=== PATIENT | female | born 2000 | race African-American/Black ===

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

== ENCOUNTER 2022-02-12 09:01 | Emergency (ER) | payer MEDICAID, OTHER ==
[~2022-02-12] VITALS: Ht 165.1 cm; Wt 56.8 kg
[2022-02-12 10:30] VITALS: BP 118/63
[2022-02-12] MEDS ORDERED: BACIOIN49 OP (11:43)
[2022-02-12] MEDS ORDERED: IBUP600T27 PO (11:43)
== END 2022-02-12 11:48 | disposition home or self-care (01) ==
LOC: ER 09:01
DX: H00.11 Chalazion right upper eyelid (principal)

== ENCOUNTER 2022-05-11 19:22 | Emergency (ER) | payer MEDICAID ==
[~2022-05-11] VITALS: Ht 165.1 cm; Wt 63.6 kg
[~2022-05-11 19:22] MED LIST: BACIOIN49 OP; IBUP600T27 PO
[2022-05-11 19:47] VITALS: BP 106/70
[2022-05-11] MEDS ORDERED: NEOM0.1O7 OP (20:46)
== END 2022-05-11 20:51 | disposition home or self-care (01) ==
LOC: ER 19:23
DX: H00.11 Chalazion right upper eyelid (principal)

== ENCOUNTER 2022-05-28 19:57 | Emergency (ER) | payer MEDICAID ==
[~2022-05-28] VITALS: Ht 165.1 cm; Wt 63.6 kg
[~2022-05-28 19:57] MED LIST changes: +NEOM0.1O7 OP
[2022-05-28 21:28] LABS: Basophils # (auto) 0 10 ^3/uL (0-0.2); Eosinophils # (auto) 0.1 10 ^3/uL (0-0.8); Hemoglobin 11.4 g/dL (12.2-16.2); Lymphocytes # (auto) 2.1 10 ^3/uL (0.4-5.4)
[2022-05-28 21:30] LABS: Basophils % (auto) 0.3 % (0.0-2.0); Eosinophils % (auto) 1.3 % (0.0-7.0); Hematocrit 34.2 % (36.0-46.0); Lymphocytes % (auto) 21.5 % (10.0-50.0); Mean Corpuscular Hemoglobin 26.4 pg (28.0-32.0); Mean Corpuscular Hgb Conc. 33.5 g/dL (32.0-36.0); Mean Corpuscular Volume 78.8 fL (80.0-100.0); Monocytes # (auto) 0.6 10 ^3/uL (0-1.3); Monocytes % (auto) 5.6 % (0.0-12.0); Neutrophils # (auto) 7.1 10 ^3/uL (1.6-8.6); Neutrophils % (auto) 71.3 % (37.0-80.0); Red Blood Cells 4.33 10^6/uL (4.0-5.20); Red Cell Distribution Width 13.1 % (11.8-14.3)
[2022-05-28 22:21] LABS: Urine Bacteria FEW /hpf (None Seen); Urine Blood Negative /uL (Negative); Urine Mucus FEW (None Seen); Urine Specific Gravity 1.036 (1.001-1.035); Urine WBC 1 /hpf (0 - 5)
[2022-05-28 22:28] LABS: Albumin 3.7 g/dL (3.4-5.0); BUN/Creatinine Ratio 17.6; Calcium 9.3 mg/dL (8.5-10.1)
[2022-05-28 22:31] LABS: Bilirubin, Total 0.2 mg/dL (0.2-1.0); Total Protein 7.3 g/dL (6.4-8.2)
[2022-05-29 01:18] VITALS: BP 125/69
== END 2022-05-29 01:18 | disposition home or self-care (01) ==
LOC: ER 19:57
DX: O20.8 Other hemorrhage in early pregnancy (principal); O26.891 Other specified pregnancy related conditions, first trimester; N94.6 Dysmenorrhea, unspecified; R10.2 Pelvic and perineal pain; Z3A.01 Less than 8 weeks gestation of pregnancy
CPT/HCPCS: 36415; 76801; 76817; 80053; 81001; 84702; 85025; 86850; 86900; 86901

== ENCOUNTER 2022-06-02 07:29 | Emergency (ER) | payer MEDICAID ==
[~2022-06-02] VITALS: Ht 165.1 cm; Wt 62.6 kg
[2022-06-02 07:46] VITALS: BP 119/68
[2022-06-02 08:01] LABS: Basophils # (auto) 0 10 ^3/uL (0-0.2); Eosinophils # (auto) 0.1 10 ^3/uL (0-0.8); Monocytes # (auto) 0.4 10 ^3/uL (0-1.3); Neutrophils # (auto) 4.2 10 ^3/uL (1.6-8.6); Nucleated Red Blood Cells % 0.1 %
[2022-06-02 08:03] LABS: Basophils % (auto) 0.5 % (0.0-2.0); Eosinophils % (auto) 1.9 % (0.0-7.0); Hematocrit 35.2 % (36.0-46.0); Lymphocytes # (auto) 1.6 10 ^3/uL (0.4-5.4); Lymphocytes % (auto) 25.3 % (10.0-50.0); Mean Corpuscular Hemoglobin 26.5 pg (28.0-32.0); Mean Corpuscular Volume 78.2 fL (80.0-100.0); Monocytes % (auto) 6.8 % (0.0-12.0); Neutrophils % (auto) 65.5 % (37.0-80.0); Red Blood Cells 4.51 10^6/uL (4.0-5.20); White Blood Cell 6.4 10^3/uL (4.4-10.8)
[2022-06-02 08:19] LABS: Calcium 8.7 mg/dL (8.5-10.1); Potassium 3.7 mmol/L (3.5-5.1)
[2022-06-02 08:24] LABS: Albumin 3.8 g/dL (3.4-5.0); BUN/Creatinine Ratio 14.3; Bilirubin, Total 0.3 mg/dL (0.2-1.0)
== END 2022-06-02 14:19 | disposition left against medical advice (07) ==
LOC: ER 07:29
DX: O26.851 Spotting complicating pregnancy, first trimester (principal); O26.891 Other specified pregnancy related conditions, first trimester; R10.2 Pelvic and perineal pain; Z3A.01 Less than 8 weeks gestation of pregnancy
CPT/HCPCS: 36415; 76801; 76817; 80053; 84702; 85025

== ENCOUNTER 2022-11-21 09:23 | Emergency (ER) | payer MEDICAID ==
[~2022-11-21] VITALS: Ht 167.6 cm; Wt 54.3 kg
[~2022-11-21 09:23] MED LIST changes: +IBUP-1454 PO; -IBUP600T27 PO
[2022-11-21 09:44] VITALS: BP 131/86; PULSE 91; RESP 16; TEMP 98; O2SAT 99
[2022-11-21 10:11] LABS: Basophils # (auto) 0 10 ^3/uL (0-0.2); Basophils % (auto) 0.7 % (0.0-2.0); Eosinophils # (auto) 0 10 ^3/uL (0-0.8); Eosinophils % (auto) 0.4 % (0.0-7.0); Hematocrit 34.8 % (36.0-46.0); Hemoglobin 11.3 g/dL (12.2-16.2); Lymphocytes # (auto) 1.5 10 ^3/uL (0.4-5.4); Lymphocytes % (auto) 25.8 % (10.0-50.0); Mean Corpuscular Hemoglobin 25.6 pg (28.0-32.0); Mean Corpuscular Hgb Conc. 32.5 g/dL (32.0-36.0); Mean Corpuscular Volume 78.6 fL (80.0-100.0); Monocytes # (auto) 0.5 10 ^3/uL (0-1.3); Monocytes % (auto) 8.8 % (0.0-12.0); Neutrophils # (auto) 3.7 10 ^3/uL (1.6-8.6); Neutrophils % (auto) 64.3 % (37.0-80.0); Nucleated Red Blood Cells % 0.1 %; Red Blood Cells 4.43 10^6/uL (4.0-5.20); Red Cell Distribution Width 13.3 % (11.8-14.3); White Blood Cell 5.8 10^3/uL (4.4-10.8)
[2022-11-21 10:35] LABS: BUN/Creatinine Ratio 18.9 (10.0-20.0); Potassium 3.6 mmol/L (3.5-5.1)
[2022-11-21 11:04] LABS: Urine Bacteria FEW /hpf (None Seen); Urine Blood Negative /uL (Negative); Urine Clarity HAZY (Clear); Urine Color Yellow (Yellow); Urine Mucus FEW (None Seen); Urine Protein, UAD 1+ (Negative); Urine Specific Gravity 1.032 (1.001-1.035); Urine WBC 6 /hpf (0 - 5)
[2022-11-21] MEDS ORDERED: ZOFR4T PO (11:22)
== END 2022-11-21 11:23 | disposition home or self-care (01) ==
LOC: ER 09:23
DX: O26.891 Other specified pregnancy related conditions, first trimester (principal); R11.0 Nausea; R10.2 Pelvic and perineal pain; Z3A.01 Less than 8 weeks gestation of pregnancy; Z79.899 Other long term (current) drug therapy
CPT/HCPCS: 36415; 80048; 81001; 81025; 84702; 85025

== ENCOUNTER 2022-12-26 08:46 | Emergency (ER) | payer MEDICAID ==
[~2022-12-26] VITALS: Ht 165.1 cm; Wt 52.2 kg
[~2022-12-26 08:46] MED LIST changes: +ZOFR4T PO
[2022-12-26 09:25] LABS: Urine Bacteria FEW /hpf (None Seen); Urine Blood Negative /uL (Negative); Urine Clarity HAZY (Clear); Urine Color Yellow (Yellow); Urine Mucus FEW (None Seen); Urine Protein, UAD 1+ (Negative); Urine Specific Gravity 1.029 (1.001-1.035); Urine Urobilinogen Normal (Negative); Urine WBC 12 /hpf (0 - 5)
[2022-12-26] MEDS ORDERED: NITR-87 PO (10:59)
[2022-12-26 11:17] VITALS: BP 114/60; PULSE 99; RESP 18; TEMP 97.8; O2SAT 98
== END 2022-12-26 11:15 | disposition home or self-care (01) ==
LOC: ER 08:46
DX: O23.41 Unspecified infection of urinary tract in pregnancy, first trimester (principal); O26.891 Other specified pregnancy related conditions, first trimester; R55 Syncope and collapse; R56.9 Unspecified convulsions; N39.0 Urinary tract infection, site not specified; Z3A.11 11 weeks gestation of pregnancy
CPT/HCPCS: 76801; 81001; 81025; 93005

== ENCOUNTER 2024-12-13 19:03 | Observation (INO) | payer MEDICAID ==
[~2024-12-13 19:03] MED LIST changes: +NITR-87 PO; +PREN-129 OR
--- NOTE | 2024-12-13 20:09 | DVH ---
OB ULTRASOUND, LIMITED CLINICAL INDICATION: SEIZURES TECHNIQUE: Multiple grayscale ultrasound and M-mode images were obtained of the pelvis for evaluation of intrauterine . COMPARISON: US OB >14 WKS on DOS: 08/20/24, US BIOPHYSICAL PROFILE on DOS: 07/16/23, US BIOPHYSICAL PROF ILE on DOS: 07/13/23 FINDINGS: A single living fetus is seen in cephalic presentation. Biophysical profile: 11/18 breathin movements: 2 tone: 2 Amniotic fluid: 2 Placenta: Fundal. Amniotic fluid: Visibly normal. JAKY 12.3 cm. heart rate: 145 beats/min. A complete anatomic survey was not performed on this exam. IMPRESSION: 1. Biophysical profile: 11/18
--- NOTE | 2024-12-13 20:39 | DVHDS2 ---
Physician Discharge Progress N Final Diagnosis: testing for hx of seizures (last one in 2022, has not been on meds since 2020) Operations or Procedures: Operations or Procedures 24yo IUP@33.2wks VSS NST reactive FKC/PTL precautions reviewed Recommended pt go see a neurologist for seizure hx mgmt. Dr. Marcano consulted, agrees with POC. Other Interventions Other Interventions [place] [address] Ph: [phone] DIAGNOSTIC IMAGING Diagnostic Imaging Report : [id number] Signed PATIENT: YULISA HEIN ACCT: [id number] UNIT: [id number] : 2000 LOC: [facility] / BED: TRIAGE2 / A AGE / SEX: 24 / F ADM STATUS: ADM IN SERVICE 15 ORDERING PHYSICIAN: REINALDO HAUSER CNM PROCEDURE(s): BPP - BIOPHYSICAL PROFILE REASON: SEIZURES ORDER NUMBER(s): [id number], ACCESSION NUMBER(s): [id number] OB ULTRASOUND, LIMITED CLINICAL INDICATION: SEIZURES TECHNIQUE: Multiple grayscale ultrasound and M-mode images were obtained of the pelvis for evaluation of intrauterine . COMPARISON: US OB >14 WKS on DOS: 08/20/24, US BIOPHYSICAL PROFILE on DOS: 07/16/23, US BIOPHYSICAL PROFILE on DOS: 07/13/23 FINDINGS: A single living fetus is seen in cephalic presentation. Biophysical profile: 11/18 breathin movements: 2 tone: 2 Amniotic fluid: 2 Placenta: Fundal. Amniotic fluid: Visibly normal. JAKY 12.3 cm. heart rate: 145 beats/min. A complete anatomic survey was not performed on this exam. IMPRESSION: 1. Biophysical profile: 11/18 ATED BY: CHOCO JOSÉ MD DICTATED DATE/TIME: 12/13/242005 SIGNED BY: CHOCO JOSÉ MD SIGNED DATE/TIME: 12/13/242005 CC: Condition on Discharge: Stable Disposition: Home Discharge Instructions: Diet: Regular Activity: No Restrictions, As Tolerated Medications: see med list Follow Up Care: Specialist: f/u in 1 wk Discharge Statement: "Patient was advised to return to the ER or call 911 if any headaches, dizziness, shortness of breath, chest pain, abdominal pain, bleeding, fevers, or worsening of medical condition. Patient was counseled about treatment plan, medications, possible side effects, patientverbalized understanding. All questions were answered to the best of my ability. This discharge took greater then 30 minutes in planning, reviewing documentation, counseling the patient, and discussing with other team members." Visit Coding OBGYN Date of Service: Dec 13, 2024 Billing Provider: REINALDO HAUSER CNM ASSISTANT COUNSEL Common Visit Codes: [id number] OBS CARE (HIGH) ASSISTANT COUNSEL Procedure Codes: 49598-59- NON-STRESS TEST REINALDO HAUSER CNM Dec 13, 2024 20:39
== END 2024-12-13 21:35 | disposition home or self-care (01) ==
LOC: LDRP 19:03
PROVIDERS: ADMIT Obstetrics & Gynecology; ATTEND Obstetrics & Gynecology
DX: Z36.89 Encounter for other specified antenatal screening (principal); Z3A.33 33 weeks gestation of pregnancy; Z98.890 Other specified postprocedural states
CPT/HCPCS: 59025; 76819; 81002; 94760; G0378

== ENCOUNTER 2024-12-19 06:35 | Observation (INO) | payer MEDICAID ==
--- NOTE | 2024-12-19 20:42 | DVH ---
BIOPHYSICAL PROFILE HISTORY: Hx of seizures Comparison Study: US BIOPHYSICAL PROFILE on DOS: 12/13/24, US OB >14 WKS on DOS: 08/20/24, US BIOPHYSICA L PROFILE on DOS: 07/16/23, US BIOPHYSICAL PROFILE on DOS: 07/13/23, US BIOPHYSICAL PROFILE on DOS: TECHNIQUE: Multiple real-time grayscale sonographic images through the gravid uterus of the fetus wi th duplex Doppler color flow and M-mode spectral analysis FINDINGS: BIOPHYSICAL PROFILE: breathing score: 2 movement score: 2 tone score: 2 Quantitative JAKY score: 2 (JAKY: 16.7 Cm.) Total score: 8 The cervix is not visualized Single live fetus in breech presentation. heart rate 147 beats per minute. Fundal placenta without previa or abruption IMPRESSION: Biophysical profile score: 8
[2024-12-20 03:38] LABS: Cannabinoid Screen, Urine Pos (NEGATIVE)
[2024-12-20 03:41] LABS: Amphetamine Screen, Urine Neg (NEGATIVE); Barbiturate Scree,Urine Neg (NEGATIVE); Benzodiazephine Screen, Urine Neg (NEGATIVE); Cocaine Screen, Urine Neg (NEGATIVE); Opiate Scree,Urine Neg (NEGATIVE); Phencyclidine Screen, Urine Neg (NEGATIVE)
--- NOTE | 2024-12-20 06:11 | DVHDS2 ---
Discharge Summary Date of Admission Dec 19, 2024 at 19:04 Date of Discharge: Dec 19, 2024 Admitting Diagnosis Thirty-four weeks history of seizure disorder here for NST BPP both performed in reassuring Labs/Diagnostic Data: Laboratory Results Test 12/19/24 21:00 Urine Opiates Screen Neg (NEGATIVE) Urine Fentanyl Screen Neg (NEGATIVE) Urine Barbiturates Screen Neg (NEGATIVE) Urine Phencyclidine Screen Neg (NEGATIVE) Urine Amphetamines Screen Neg (NEGATIVE) Urine Benzodiazepines Screen Neg (NEGATIVE) Urine Cocaine Screen Neg (NEGATIVE) Urine Cannabinoids Screen Pos (NEGATIVE) Brief Hx & Hospital Course: NST BPP performed reassuring Consults/Reason for consult None Operations or Procedures None Condition at Discharge: Good Final Diagnosis/Problems List 34 weeks seizures disorder history reassuring NST BPP Discharge Disposition: Home Discharge Instruct/Medications Diet: Regular Activity: Light activity (Kick counts labor precautions) Scheduled Bacitracin-Polymyxin B (Ophth) (Bacitracin/Polymyxin B), 1 BASE OP TID Nitrofurantoin Monohydrate Mac (Macrobid), 100 MG PO BID Ondansetron Odt 4MG Tab (Zofran Po), 4 MG PO BID Scheduled PRN Ibuprofen (Ibuprofen), 1 TAB PO TID PRN Wqofssyt-Aknlmb-Yqmxzgkc (Maxitrol), 0.1 % OP TID PRN Miscellaneous Medications Vit W/ Ferrous Fumara (), 1 OR, (Reported) Discharge Statement: "Patient was advised to return to the ER or call 911 if any headaches, dizziness, shortness of breath, chest pain, abdominal pain, bleeding, fevers, or worsening of medical condition. Patient was counseled about treatment plan, medications, possible side effects, patientverbalized understanding. All questions were answered to the best of my ability. This discharge took greater then 30 minutes in planning, reviewing documentation, counseling the patient, and discussing with other team members." ASSESSMENT ASSESSMENT Assessment Visit Coding OBGYN Date of Service: Dec 19, 2024 Billing Provider: ENDY DUNN DO DIRECTOR OF PROVIDER RELATIONS Common Visit Codes: 36761-UEK/OBS SAME DATE (LOW), 18941-LXN/OBS SAME DATE (MOD), 10198-KZS/OBS SAME DATE (HIGH) DIRECTOR OF PROVIDER RELATIONS Procedure Codes: 49792-65- NON-STRESS TEST ENDY DUNN DO Dec 20, 2024 06:11
== END 2024-12-19 21:12 | disposition home or self-care (01) ==
LOC: LDRP 19:04
PROVIDERS: ADMIT Obstetrics & Gynecology; ATTEND Obstetrics & Gynecology
DX: O26.893 Other specified pregnancy related conditions, third trimester (principal); G40.909 Epilepsy, unspecified, not intractable, without status epilepticus; Z3A.34 34 weeks gestation of pregnancy; Z98.890 Other specified postprocedural states
CPT/HCPCS: 59025; 76819; 80307; 81002; 94760; G0378

== ENCOUNTER 2024-12-26 13:12 | Observation (INO) | payer MEDICAID ==
[2024-12-26] MEDS ORDERED: AMMONIA 0.33 ML INHALANT IN ONE (20:44)
[2024-12-26] MEDS ORDERED: FERR325T24 PO (21:11)
--- NOTE | 2024-12-26 21:12 | DVH ---
LIMITED OB ULTRASOUND > 14 WKS: HISTORY: Seizures TECHNIQUE: Transabdominal sonographic images of maternal and structures. COMPARISON: US BIOPHYSICAL PROFILE on DOS: 12/19/24, US BIOPHYSICAL PROFILE on DOS: 12/13/24, US BIOPHYSI BEATRICE PROFILE on DOS: 07/16/23, US BIOPHYSICAL PROFILE on DOS: 07/13/23, US BIOPHYSICAL PROFILE on DOS: 06/12 09/03 FINDINGS: Intrauterine gestation with heart rate of 147 beats per minute. Cephalic presentation. Posteri or placenta without obvious previa. The cervix is obscured. JAKY measures 14.7 cm. Biophysical profile: breathin/2 movements: 2/2 tone: 2/2 Amniotic Fluid: 2/2 IMPRESSION: 1. Biophysical profile score of 6/8, with no visualized breathing. Obstetric consultation recom mended. 2. Normal cardiac activity. Cephalic presentation. No evidence of previa.
[2024-12-26 21:25] LABS: Hemoglobin 8.4 g/dL (12.2-16.2)
[2024-12-26 21:27] LABS: Hematocrit 25.6 % (36.0-46.0); Mean Corpuscular Hemoglobin 24.2 pg (28.0-32.0); Mean Corpuscular Volume 73.9 fL (80.0-100.0); Nucleated Red Blood Cells % 0.0 %
[2024-12-26 21:36] LABS: Alanine Aminotransferase 11 U/L (7-40); Anion Gap 9 (5-15); BUN/Creatinine Ratio 10.9 (10.0-20.0); Carbon Dioxide 26 mmol/L (20-31); Chloride 102 mmol/L (98-107); Glucose 82 mg/dL (74-106); Potassium 4.1 mmol/L (3.5-5.1); Sodium 137 mmol/L (136-145); Total Protein 6.0 g/dL (5.7-8.2)
[2024-12-26 21:37] LABS: Albumin 3.6 g/dL (3.2-4.8)
[2024-12-26 21:39] LABS: Protein, Urine 28.6 mg/dL (1-14)
[2024-12-26 21:41] LABS: Alkaline Phosphatase 120 U/L (46-116); Bilirubin, Total 0.2 mg/dL (0.2-1.0); Blood Urea Nitrogen 6 mg/dL (9-23); Calcium 8.5 mg/dL (8.7-10.4)
[2024-12-26 21:44] LABS: INR 0.9 (0.9-1.15); Partial Thromboplastin Time 25.8 SEC (24.5-34.5); Prothrombin Time 9.6 sec (9.3-11.8)
[2024-12-26 21:49] LABS: Urine Protein, UAD TRACE (Negative)
[2024-12-26 21:56] LABS: Uric Acid 3.5 mg/dL (3.1-7.8)
--- NOTE | 2024-12-27 06:16 | DVHDS2 ---
Discharge Summary Date of Admission Dec 26, 2024 at 19:05 Date of Discharge: Dec 26, 2024 Admitting Diagnosis Thirty-five week history of seizure disorder here for BPP NST both reassuring and both performed Wounds: None Labs/Diagnostic Data: Laboratory Results Test 12/26/24 20:58 12/26/24 20:31 White Blood Count 10.4 10^3/uL (4.4-10.8) Red Blood Count 3.47 10^6/uL (4.0-5.20) Hemoglobin 8.4 g/dL (12.2-16.2) Hematocrit 25.6 % (36.0-46.0) Mean Corpuscular Volume 73.9 fL (80.0-100.0) Mean Corpuscular Hemoglobin 24.2 pg (28.0-32.0) Mean Corpuscular Hemoglobin Concent 32.8 g/dL (32.0-36.0) Red Cell Distribution Width 15.5 % (11.8-14.3) Platelet Count 299 10^3/uL (140-450) Mean Platelet Volume 7.2 fL (6.9-10.8) Neutrophils (%) (Auto) 69.0 % (37.0-80.0) Lymphocytes (%) (Auto) 21.3 % (10.0-50.0) Monocytes (%) (Auto) 8.4 % (0.0-12.0) Eosinophils (%) (Auto) 0.9 % (0.0-7.0) Basophils (%) (Auto) 0.4 % (0.0-2.0) Neutrophils # (Auto) 7.2 10 ^3/uL (1.6-8.6) Lymphocytes # (Auto) 2.2 10 ^3/uL (0.4-5.4) Monocytes # (Auto) 0.9 10 ^3/uL (0-1.3) Eosinophils # (Auto) 0.1 10 ^3/uL (0-0.8) Basophils # (Auto) 0 10 ^3/uL (0-0.2) Nucleated Red Blood Cells 0.0 % Prothrombin Time 9.6 sec (9.3-11.8) Prothrombin Time INR 0.90 (0.9-1.15) Activated Partial Thromboplast Time 25.8 SEC (24.5-34.5) Sodium Level 137 mmol/L (136-145) Potassium Level 4.1 mmol/L (3.5-5.1) Chloride Level 102 mmol/L (98-107) Carbon Dioxide Level 26 mmol/L (20-31) Anion Gap 9 (5-15) Blood Urea Nitrogen 6 mg/dL (9-23) Creatinine 0.55 mg/dL (0.550-1.02) Glomerular Filtration Rate Calc 133 mL/min (>90) BUN/Creatinine Ratio 10.9 (10.0-20.0) Serum Glucose 82 mg/dL (74-106) Uric Acid 3.5 mg/dL (3.1-7.8) Calcium Level 8.5 mg/dL (8.7-10.4) Total Bilirubin 0.2 mg/dL (0.2-1.0) Aspartate Amino Transferase (AST) 16 U/L (13-40) Alanine Aminotransferase (ALT) 11 U/L (7-40) Alkaline Phosphatase 120 U/L (46-116) Total Protein 6.0 g/dL (5.7-8.2) Albumin 3.6 g/dL (3.2-4.8) Urine Color Yellow (Yellow) Urine Clarity Turbid (Clear) Urine pH 6.0 (5.0-9.0) Urine Specific [place] 1.024 (1.001-1.035) Urine Protein Trace (Negative) Urine Ketones Negative (Negative) Urine Blood Negative /uL (Negative) Urine Nitrite Negative (Negative) Urine Bilirubin Negative (Negative) Urine Urobilinogen Normal mg/dL (Negative) Urine Leukocyte Esterase 2+ /uL (Negative) Urine RBC 1 /hpf (0 - 4) Urine Microscopic WBC 6 /HPF (0-5) Urine Squamous Epithelial Cells Few /hpf (<5) Urine Bacteria Few /hpf (None Seen) Urine Mucus Few (None Seen) Urine Creatinine 205.66 mg/dL (30.0-125.0) Urine Protein/Creatinine Ratio 0.14 Urine Glucose Normal mg/dL (Normal) Urine Total Protein 28.6 mg/dL (1-14) Other Laboratory Tests 12/26/24 20:58 Brief Hx & Hospital Course: BPP NST reassuring performed Operations or Procedures NST BPP Condition at Discharge: Good Final Diagnosis/Problems List Hx of seizures Discharge Disposition: Home Discharge Instruct/Medications Diet: Regular Activity: No Restrictions, As Tolerated (Kick counts labor precautions) Follow Up/Referral: Return to birthplace 12/27/24 at 2pm Medications: Continue taking PNV and Iron Scheduled Bacitracin-Polymyxin B (Ophth) (Bacitracin/Polymyxin B), 1 BASE OP TID Ferrous Sulfate (Ferrous Sulfate), 325 MG PO DAILY, (Reported) Nitrofurantoin Monohydrate Mac (Macrobid), 100 MG PO BID Ondansetron Odt 4MG Tab (Zofran Po), 4 MG PO BID Scheduled PRN Ibuprofen (Ibuprofen), 1 TAB PO TID PRN Iyqncxku-Kiokks-Oedewyrl (Maxitrol), 0.1 % OP TID PRN Miscellaneous Medications Vit W/ Ferrous Fumara (), 1 OR, (Reported) Discharge Statement: "Patient was advised to return to the ER or call 911 if any headaches, dizziness, shortness of breath, chest pain, abdominal pain, bleeding, fevers, or worsening of medical condition. Patient was counseled about treatment plan, medications, possible side effects, patientverbalized understanding. All questions were answered to the best of my ability. This discharge took greater then 30 minutes in planning, reviewing documentation, counseling the patient, and discussing with other team members." ASSESSMENT ASSESSMENT Assessment Hx of seizures Visit Coding OBGYN Date of Service: Dec 27, 2024 Billing Provider: ENDY DUNN DO PROBATION SUPERVISOR Common Visit Codes: 04544-RYR/OBS SAME DATE (LOW), 46283-YMG/OBS SAME DATE (MOD), 74480-SDE/OBS SAME DATE (HIGH) PROBATION SUPERVISOR Procedure Codes: 92601-59- NON-STRESS TEST ENDY DUNN DO Dec 27, 2024 06:16
== END 2024-12-26 22:31 | disposition home or self-care (01) ==
LOC: LDRP 19:05
PROVIDERS: ADMIT Obstetrics & Gynecology; ATTEND Obstetrics & Gynecology
DX: O26.893 Other specified pregnancy related conditions, third trimester (principal); G40.909 Epilepsy, unspecified, not intractable, without status epilepticus; Z3A.35 35 weeks gestation of pregnancy; Z98.890 Other specified postprocedural states; Z86.2 Personal history of diseases of the blood and blood-forming organs and certain disorders involving the immune mechanism
CPT/HCPCS: 36415; 59025; 76819; 80053; 81001; 81002; 82570; 84156; 84550; 85025; 85610; 85730; 94760; G0378

== ENCOUNTER 2024-12-27 06:58 | Observation (INO) | payer MEDICAID ==
[~2024-12-27 06:58] MED LIST changes: +FERR325T24 PO
--- NOTE | 2024-12-29 16:17 | DVH ---
BIOPHYSICAL PROFILE HISTORY: Fall Comparison Study: US BIOPHYSICAL PROFILE on DOS: 12/26/24, US BIOPHYSICAL PROFILE on DOS: 12/19/24, US B IOPHYSICAL PROFILE on DOS: 12/13/24, US OB >14 WKS on DOS: 08/20/24, US BIOPHYSICAL PROFILE on DOS: TECHNIQUE: Multiple real-time grayscale sonographic images through the gravid uterus of the fetus wi th duplex Doppler color flow and M-mode spectral analysis FINDINGS: BIOPHYSICAL PROFILE: breathing score: 2 movement score: 2 tone score: 2 Quantitative JAKY score: 2 (JAKY: 15.4 Cm.) Total score: 8 The cervix is not visualized Single live fetus in cephalic presentation. heart rate 148 beats per minute. Fundal placenta without previa or abruption IMPRESSION: Biophysical profile score: 8
--- NOTE | 2024-12-30 15:36 | DVHDS2 ---
Physician Discharge Progress N Final Diagnosis: seizure disorder,s/p fall 35wks Operations or Procedures: Operations or Procedures nst reactive reviwedlindao Condition on Discharge: Good Disposition: Home Discharge Instructions: Diet: Regular Activity: No Restrictions, As Tolerated Medications: na Follow Up Care: Specialist: 1w Discharge Statement: "Patient was advised to return to the ER or call 911 if any headaches, dizziness, shortness of breath, chest pain, abdominal pain, bleeding, fevers, or worsening of medical condition. Patient was counseled about treatment plan, medications, possible side effects, patientverbalized understanding. All questions were answered to the best of my ability. This discharge took greater then 30 minutes in planning, reviewing documentation, counseling the patient, and discussing with other team members." Visit Coding OBGYN Date of Service: Dec 29, 2024 Billing Provider: KOKI ECHEVARRIA DO SMALL ANIMAL VETERINARIAN Common Visit Codes: 91407-UPZHWQN OBS CARE (HIGH) SMALL ANIMAL VETERINARIAN Procedure Codes: 87240-78- NON-STRESS TEST KOKI ECHEVARRIA DO Dec 30, 2024 15:36
== END 2024-12-29 17:01 | disposition home or self-care (01) ==
LOC: UNDOADMOB 12-29 15:25 → LDRP 12-29 15:25
PROVIDERS: ADMIT Obstetrics & Gynecology; ATTEND Obstetrics & Gynecology
DX: O26.893 Other specified pregnancy related conditions, third trimester (principal); G40.909 Epilepsy, unspecified, not intractable, without status epilepticus; Z3A.35 35 weeks gestation of pregnancy; Z98.890 Other specified postprocedural states; W18.39XA Other fall on same level, initial encounter; Y93.89 Activity, other specified; Y92.89 Other specified places as the place of occurrence of the external cause; Y99.8 Other external cause status
CPT/HCPCS: 59025; 76819; 81002; 94760; G0378

== ENCOUNTER 2025-01-02 07:46 | Observation (INO) | payer MEDICAID ==
[~2025-01-02] VITALS: Ht 167.6 cm; Wt 62.1 kg
--- NOTE | 2025-01-02 20:08 | DVH ---
BIOPHYSICAL PROFILE HISTORY: Hx of seizures Comparison Study: US BIOPHYSICAL PROFILE on DOS: 12/29/24, US BIOPHYSICAL PROFILE on DOS: 12/26/24, US BIOPHYSICAL PROFILE on DOS: 12/19/24, US BIOPHYSICAL PROFILE on DOS: 12/13/24, US OB >14 WKS on DOS: 08/20 TECHNIQUE: Multiple real-time grayscale sonographic images through the gravid uterus of the fetus wit h duplex doppler color flow and M-mode spectral analysis FINDINGS: BIOPHYSICAL PROFILE: breathing score: 2 movement score: 2 tone score: 2 Quantitative JAKY score: 2 (JAKY: 17.4 cm.) Total score: 8 The cervix is closed Single live fetus in vertex presentation. heart rate 140 beats per minute. Posterior placenta without previa or abruption. Single nuchal cord noted. IMPRESSION: 1. Biophysical profile score: 8/
[2025-01-02] MEDS: TERBUTALINE SULFATE 1 MG/ML 1ML VIAL SC STA (21:09)
[2025-01-02] MEDS ORDERED: CLIN150C PO (21:26)
[2025-01-02 21:27] LABS: Urine Protein, UAD 1+ (Negative)
--- NOTE | 2025-01-03 06:15 | DVHDS2 ---
Discharge Summary Date of Admission Jan 02, 2025 at 19:07 Date of Discharge: Jan 02, 2025 Admitting Diagnosis The 6+ weeks here for NST BPP which performed and both reassuring she has history of seizure disorder not on any seizure meds and has not had a seizures recent Wounds: None Labs/Diagnostic Data: Laboratory Results Test 01/02/25 19:35 Urine Color Light-orange (Yellow) Urine Clarity Turbid (Clear) Urine pH 6.5 (5.0-9.0) Urine Specific [place] 1.028 (1.001-1.035) Urine Protein 1+ (Negative) Urine Ketones 2+ (Negative) Urine Blood Negative /uL (Negative) Urine Nitrite Negative (Negative) Urine Bilirubin Negative (Negative) Urine Urobilinogen 3 mg/dL (Negative) Urine Leukocyte Esterase 2+ /uL (Negative) Urine RBC 1 /hpf (0 - 4) Urine Microscopic WBC 10 /HPF (0-5) Urine Squamous Epithelial Cells Few /hpf (<5) Urine Bacteria Few /hpf (None Seen) Urine Mucus Moderate (None Seen) Urine Glucose Normal mg/dL (Normal) Brief Hx & Hospital Course: Scheduled NST BPP Operations or Procedures ne none Condition at Discharge: Good Final Diagnosis/Problems List 36+ weeks reassuring heart tones and BPP no sign of seizure disorder this visit. Discharge Disposition: Home Discharge Instruct/Medications Diet: Regular Activity: No Restrictions, As Tolerated Activity comment: Kick counts labor precautions seizure precautions Follow Up/Referral: As scheduled Medications: Continue having meds and vitamins Scheduled Bacitracin-Polymyxin B (Ophth) (Bacitracin/Polymyxin B), 1 BASE OP TID Clindamycin Hcl (Cleocin), 300 MG PO TID, (Reported) Ferrous Sulfate (Ferrous Sulfate), 325 MG PO DAILY, (Reported) Nitrofurantoin Monohydrate Mac (Macrobid), 100 MG PO BID Ondansetron Odt 4MG Tab (Zofran Po), 4 MG PO BID Scheduled PRN Ibuprofen (Ibuprofen), 1 TAB PO TID PRN Eveforbb-Nztkkw-Ipalfyyr (Maxitrol), 0.1 % OP TID PRN Miscellaneous Medications Vit W/ Ferrous Fumara (), 1 OR, (Reported) Discharge Statement: "Patient was advised to return to the ER or call 911 if any headaches, dizziness, shortness of breath, chest pain, abdominal pain, bleeding, fevers, or worsening of medical condition. Patient was counseled about treatment plan, medications, possible side effects, patientverbalized understanding. All questions were answered to the best of my ability. This discharge took greater then 30 minutes in planning, reviewing documentation, counseling the patient, and discussing with other team members." ASSESSMENT ASSESSMENT Assessment Visit Coding OBGYN Date of Service: Jan 02, 2025 Billing Provider: ENDY DUNN DO TOLL SETTLEMENT CLERK Common Visit Codes: 68923-MYV/OBS SAME DATE (LOW), 11796-ODC/OBS SAME DATE (MOD), 55469-NWW/OBS SAME DATE (HIGH) TOLL SETTLEMENT CLERK Procedure Codes: 23315-74- NON-STRESS TEST ENDY DUNN DO Jan 03, 2025 06:14
== END 2025-01-02 22:12 | disposition home or self-care (01) ==
LOC: LDRP 19:07
PROVIDERS: ADMIT Obstetrics & Gynecology; ATTEND Obstetrics & Gynecology
DX: Z36.89 Encounter for other specified antenatal screening (principal); Z3A.36 36 weeks gestation of pregnancy; Z98.890 Other specified postprocedural states
CPT/HCPCS: 59025; 76819; 81001; 81002; 94762; 96372; G0378; J3105

== ENCOUNTER 2025-01-09 17:43 | Observation (INO) | payer MEDICAID ==
[~2025-01-09 17:43] MED LIST changes: +CLIN150C PO
--- NOTE | 2025-01-09 21:33 | DVHDS2 ---
Physician Discharge Progress N Final Diagnosis: False Labor Secondary Diagnosis: UTI in Tooth Root Canal infection prophylaxis Problems List: (1) NST (non-stress test) reactive on surveillance (2) Third trimester (3) History of seizure (4) Anemia complicating in third trimester (5) UTI in Operations or Procedures: Operations or Procedures Non Stress Test Amniotic fluid index Biophysical profile Commentary: Commentary Surveillance Visit Subjective Patient is 24 y/o (1,0,2,1) IUP 37w3d presents to place for surveillance due to history of seizures of unknown origion in . Last seizure episode was greater than one year She reports normal movements, mild occasional contractions , no leakage of fluid, vaginal bleeding, WALTERS, vision changes or epigastric pain Is currently being treated for a UTI in with Clindamycin Currently being treated for a tooth root canal with Amoxicillin Objective Afebrile, VSS Respiration: unlabored heart and lung sounds normal. Abdomen: Gravid, non-tender to palpation Extremities: No edema BPP 8/8 NST reactive Amitotic fluid index 12.8 Assessment: NST Reactive and Reassuring FHR 125 with Accell 15bpm X 15 Bpm Decels' none noted Contractions every 6-7 min noted Normal BPP Reactive NST Plan Discharge patient in stable condition Continue surveillance weekly Keep Scheduled Clinic appt with Dr Marcano Pt education FKC, PTL & pre-eclampsia precautions reviewed with pt; advised to seek health care if any symptom including but not limited to any of the above. Condition on Discharge: Stable Disposition: Home SNF Discharge Physician in charge at time of: Dr Cielo Marcano Will this Physician continue t: Yes Discharge Instructions: Diet: Regular Activity: No Restrictions, As Tolerated Medications: Clindimycin / Amoxicillin Follow Up Care: Primary Care Provider: Ramona Marcano Discharge Care Plan Problem Pain, Risk for infection False Labor Goals Pain relieved Know Disease Process Instructions Take Rx medications, Notify MD of any issues, Keep list of meds w/ you See pt D/C handouts Visit Coding OBGYN Date of Service: Jan 09, 2025 Billing Provider: SUHAS ZHENG CNM WEBSPHERE COMMERCE ARCHITECT Common Visit Codes: [id number]-[id number] OBS CARE (MOD) [facility] 21[facility]33
--- NOTE | 2025-01-09 22:10 | DVH ---
BIOPHYSICAL PROFILE HISTORY: Hx of seizures TECHNIQUE: Multiple transabdominal real-time grayscale sonographic images through the gravid uterus of the fetus with duplex Doppler color flow and M-mode spectral analysis FINDINGS: BIOPHYSICAL PROFILE: breathing score: 2 movement score: 2 tone score: 2 Quantitative JAKY score: 2 (JAKY: 12.8 cm.) Total score: 8/8 The cervix obscured not measured Single live fetus in vasiliy presentation. heart rate 152 beats per minute. Fundal Grade 2-3 placenta without previa or abruption Single live fetus at 37 weeks 3 days Biophysical profile score 8/8 corresponding to an LINDSAY of 01/27/2025. Nuchal cord IMPRESSION: 1. Biophysical profile score: 8/8 2. Nuchal cord 3. position cephalic cervix obscured by head 4. Placenta in the uterine fundus.
== END 2025-01-09 21:32 | disposition home or self-care (01) ==
LOC: LDRP 19:22
PROVIDERS: ADMIT Obstetrics & Gynecology; ATTEND Obstetrics & Gynecology
DX: O47.9 False labor, unspecified (principal); O99.013 Anemia complicating pregnancy, third trimester; O23.43 Unspecified infection of urinary tract in pregnancy, third trimester; N39.0 Urinary tract infection, site not specified; Z3A.37 37 weeks gestation of pregnancy; Z98.890 Other specified postprocedural states
CPT/HCPCS: 59025; 76819; 81002; 94760; G0378

== ENCOUNTER 2025-01-11 09:38 | Inpatient (IN) | payer MEDICAID ==
[~2025-01-11] VITALS: Ht 30.5 cm; Wt 0.5 kg
[2025-01-11] MEDS ORDERED: LIDOCAINE 2%HCL (LOCAL ANESTH.) INJ 20ML MDV IJ PRN (10:00)
[2025-01-11] MEDS ORDERED: PENICILLIN G POT 5MIL/D5 50ML 50 ML IV ONE (10:00)
[2025-01-11] MEDS ORDERED: BUTORPHANOL TARTRATE 2 MG/1 ML VIAL IV PRN ×2 (10:00)
--- NOTE | 2025-01-11 10:02 | DVHHP2 ---
OB CC & HPI Date Date of Admission: Jan 11, 2025 Patient Identification: : 4 Para: 1 EDC: Jan 27, 2025 EGA: 37wks Chief Complaints: Reason for admission: active labor Admission Nurse Assessment Rev: No History of Present Complaints pt is admitted for active ;labor,no rom or vag bleeding Past Medical History Cardiac: No pertinent Hx Pulmonary: No pertinent Hx Central Nervous System: No pertinent Hx GI: No pertinent Hx Hemotology/Oncology: No pertinent Hx Hepatobiliary: No pertinent Hx Psychiatric: No pertinent Hx Musculoskeletal: No pertinent Hx Rheumotologic: No pertinent Hx Infectious Disease: No peritnent Hx ENT: No pertinent Hx Renal/: No pertinent Hx Endocrine: No pertinent Hx Dermatology: No pertinent Hx, Other (sizures ) Past Surgical History: No pertinent Hx OB History OB History Care: Good Care Ultrasounds: Normal mid trimester US Obstetrical Complications: Other Medical Complications: None (seizures) Allergies: Coded Allergies: NO KNOWN ALLERGIES (Unverified , 01/02/25) Home Meds Active Scripts Nitrofurantoin Monohydrate Mac (Macrobid) 100 Mg Cap, 100 MG PO BID for 5 Days, #10 CAP Prov:VELMA STERLING MD 12/26/22 Ondansetron Odt 4MG Tab (ZOFRAN PO) 4 Mg Tb, 4 MG PO BID, #20 TAB ODT TAB-DISSOLVE IN MOUTH, THEN SWALLOW Prov:KEVIN NAGY 11/21/22 Eafoqtif-Zgraky-Pvisqpvl (Maxitrol) 0.1 % Oin, 0.1 % OP TID PRN, #3.5 OIN Prov:ANDERS MARTINEZ 05/11/22 Ibuprofen (Ibuprofen) 600 Mg Tab, 1 TAB PO TID PRN for 5 Days, #15 TAB Prov:ALMA DELIA SANCHEZ PAC 02/12/22 Bacitracin-Polymyxin B (Ophth) (Bacitracin/Polymyxin B) Op Oin, 1 BASE OP TID for 7 Days, #10 OIN Prov:ALMA DELIA SANCHEZ PAC 02/12/22 Reported Medications Clindamycin Hcl (CLEOCIN) 150 Mg Cap, 300 MG PO TID for 7 Days, #21 CAP 01/02/25 Ferrous Sulfate (Ferrous Sulfate) 325 Mg Tab, 325 MG PO DAILY for 30 Days, MG 12/26/24 Vit W/ Ferrous Fumara () Tab, 1 OR, TAB 07/06/23 Current Medications Current Medications Medications (Trade) Dose Ordered Sig/Krystle Route PRN Reason Start Time Stop Time Status Last Admin Lactated Ringer's 1,000 ml @ 125 mls/hr Q8H IV 01/11/25 10:00 UNV Penicillin G Potassium [id number] units/Dextrose 50 ml @ 100 mls/hr Q4H IV 01/11/25 14:00 UNV Witch Linda (Tucks) 1 pad PRN PRN TOP PERINEAL AREA DISCOMFORT 01/11/25 10:00 UNV Sodium Lauryl Sulfate (Phisoderm) 240 ml PRN PRN TOP PERINEAL AREA DISCOMFORT 01/11/25 10:00 UNV Benzocaine (Dermoplast) 1 applic PRN PRN TOP PERINEAL AREA DISCOMFORT 01/11/25 10:00 UNV Butorphanol Tartrate (Stadol Injection) 1 mg Q4HPRN PRN IV MODERATE PAIN (4-6 PAIN SCALE) 01/11/25 10:00 UNV Butorphanol Tartrate (Stadol Injection) 2 mg Q4HPRN PRN IV SEVERE PAIN (7-10 PAIN SCALE) 01/11/25 10:00 UNV Lidocaine HCl (Xylocaine) 20 ml ONCE PRN IJ PERINEAL AREA DISCOMFORT 01/11/25 10:00 UNV Family & Social History Family/Social History Blood Type: Unknown Rubella: unknown RPR/VDRL: Unknown GBS Status: Unknown HBsAG: Unknown Review of Systems Constitutional: No symptom reported Ears, Nose, & Throat: No symptom reported Eyes: No symptom reported Pulmonary/Respiratory: No symptom reported Cardiovascular: No symptom reported Gastrointestinal: No symptom reported Genitourinary: No symptom reported Musculoskeletal: No symptom reported Skin: No symptom reported Psychiatric: No symptom reported Endocrine: No symptom reported Hemotologic/Lymphatic: No symptom reported OB Admission Exam Physical Exam HEENT: TMs Normal, Fontanelles Normal, Nasal Mucosa Normal, Eyes non-injected, Oropharynx Normal, PERRLA, Moist Membranes, EOMI Heart: Rhythm Normal Lungs: Clear Abdomen: Non tender Extremities: Normal Reflexes: Normal Cervical Dilatation: 7cm Effacement: 75% Station: -1 Membranes: Intact Heart Rate: 130's Accelerations: Accelerations Present Decelerations: No Decelerations Short Term Variability: Present Fdc Variability: Average (6-25) Contractions on Admission: < 5 Minutes Apart Intensity: Moderate OB Plan Plan Admitting Diagnosis: active Labor iup at 37wks with seizure disorder Plan: Expectant Management Other Plan: expectant vag del informed consent obtained Visit Coding OBGYN Date of Service: Jan 11, 2025 Billing Provider: KOKI ECHEVARRIA DO BUSINESS ASST Common Visit Codes: [id number] INP/OBS CARE (HIGH) BUSINESS ASST Procedure Codes: 49100-02- NON-STRESS TEST KOKI ECHEVARRIA DO Jan 11, 2025 10:02
[2025-01-11] MEDS ORDERED: NALOXONE HCL 0.4 MG/ML VIAL IV ONE (10:15)
[2025-01-11 10:18] LABS: Nucleated Red Blood Cells % 0.0 %
[2025-01-11 10:20] LABS: Hematocrit 28.5 % (36.0-46.0); Hemoglobin 9.3 g/dL (12.2-16.2); Mean Corpuscular Hemoglobin 23.3 pg (28.0-32.0); Mean Corpuscular Volume 71.6 fL (80.0-100.0)
[2025-01-11 10:33] LABS: Alanine Aminotransferase 12 U/L (7-40); Albumin 3.8 g/dL (3.2-4.8); Anion Gap 12 (5-15); BUN/Creatinine Ratio 11.3 (10.0-20.0); Bilirubin, Total 0.5 mg/dL (0.2-1.0); Calcium 8.8 mg/dL (8.7-10.4); Carbon Dioxide 21 mmol/L (20-31); Chloride 105 mmol/L (98-107); Potassium 3.6 mmol/L (3.5-5.1); Sodium 138 mmol/L (136-145); Total Protein 6.6 g/dL (5.7-8.2)
[2025-01-11 10:34] LABS: Alkaline Phosphatase 144 U/L (46-116); Blood Urea Nitrogen 6 mg/dL (9-23); Glucose 73 mg/dL (74-106)
[2025-01-11 10:41] LABS: INR 0.92 (0.9-1.15); Partial Thromboplastin Time 26.3 SEC (24.5-34.5); Prothrombin Time 9.8 sec (9.3-11.8)
[2025-01-11] MEDS: LACTATED RINGER'S 1,000 ML IV SCH (11:00)
[2025-01-11] MEDS: WITCH HAZEL-GLYCERIN PAD TOP PRN (11:00)
[2025-01-11] MEDS: PHISODERM TOP SOLN 240ML BTL TOP PRN (11:00)
[2025-01-11] MEDS: LACTATED RINGER'S 1,000 ML IV ONE (11:00)
[2025-01-11] MEDS: DERMOPLAST 60ML BOTTLE TOP PRN (11:00)
[2025-01-11] MEDS: ROPIVACAINE HCL 100 ML ONE (11:02)
[2025-01-11 11:51] LABS: Urine Protein, UAD TRACE (Negative)
[2025-01-11 12:03] LABS: Cannabinoid Screen, Urine Pos (NEGATIVE)
[2025-01-11 12:04] LABS: Amphetamine Screen, Urine Neg (NEGATIVE); Barbiturate Scree,Urine Neg (NEGATIVE); Benzodiazephine Screen, Urine Neg (NEGATIVE); Cocaine Screen, Urine Neg (NEGATIVE); Opiate Scree,Urine Neg (NEGATIVE); Phencyclidine Screen, Urine Neg (NEGATIVE)
[2025-01-11] MEDS: METHYLERGONOVINE MALEATE 0.2 MG/ML AMP IM ONE ×2 (12:32→13:33)
[2025-01-11] MEDS: LACT. RINGERS/OXYTOCIN 20UNITS 500 ML IV ONE (13:01)
[2025-01-11] MEDS: LACT. RINGERS/OXYTOCIN 20UNITS 1,000 ML IV SCH (13:01)
--- NOTE | 2025-01-11 13:17 | LDN2 ---
Labor and Delivery Note Date 01/11/25 Age 25 4 Para 2 AB 1 EDC 10-17 EGA 37wks Diagnosis labor Vaginal Delivery: VTX Vacuum Assisted: No Placenta: Spontaneous Sex: Male Apgars 9-9 Nuchal Cord Transected: Yes Amniotic Fluid: Clear Anesthesia epidural Episiotomy: No Extension: No EBL 300ml Labs Blood Bank 01/11/25 10:00: Blood Type B POSITIVE Complications none Conditions stable Comments/Significant Med Chalino spec exam no cxal lac Visit Coding OBGYN Date of Service: Jan 11, 2025 Billing Provider: KOKI ECHEVARRIA DO CLIENT ANALYST Common Visit Codes: [id number] INP/OBS CARE(HIGH) CLIENT ANALYST Procedure Codes: 27630-QDT DELIVERY ONLY KOKI ECHEVARRIA DO Jan 11, 2025 13:17
[2025-01-11] MEDS ORDERED: PENICILLIN G POTASSIUM 2,500,000 UNITS in D5W 5% 50 ML IV SCH (14:00)
[2025-01-11] MEDS: ONDANSETRON ODT 4 MG TAB PO PRN (14:49)
[2025-01-11] MEDS: IBUPROFEN 600 MG TAB PO PRN (15:24)
[2025-01-11] MEDS ORDERED: PREN1TAB PO (17:02)
[2025-01-11] MEDS ORDERED: DOCU-94 PO (17:02)
[2025-01-11] MEDS ORDERED: IBU600T PO (17:02)
[2025-01-11] MEDS ORDERED: FERR30CA PO (17:06)
[2025-01-11 19:00] VITALS: BP 111/53; PULSE 75; RESP 16; TEMP 98.6
[2025-01-11] MEDS: ACETAMINOPHEN 325 MG TAB PO PRN (19:24)
[2025-01-11 23:00] VITALS: BP 109/62; PULSE 69; RESP 18; TEMP 98; O2SAT 97
[2025-01-12] MEDS: DOCUSATE SOD 100 MG CAP PO ONE (00:23)
--- NOTE | 2025-01-12 00:47 | DVHPN2 ---
Progress Note Date Seen: Jan 12, 2025 Subjective S: pt is ambulating well, voiding, no BM yet, eating and drinking well, , lochia is scant, denies WALTERS/ vision changes or epigastric pain, no concerns vital signs Vital Sign Date Time Temp Pulse Resp B/P (MAP) Pulse Ox O2 Delivery O2 Flow Rate FiO2 01/11/25 23:00 98.0 69 18 109/62 (78) 97 98.0 01/11/25 19:00 Room Air Total Intake and Output 01/11/25 01/11/25 01/12/25 15:00 23:00 07:00 Output Total 1400 ml Balance -1400 ml medications Current Medications Medications Dose Ordered Sig/Krystle Route Start Time Stop Time Status Last Admin Dose Admin Witch Linda 1 pad PRN PRN TOP 01/11/25 10:00 01/11/25 11:00 1 PAD Sodium Lauryl Sulfate 240 ml PRN PRN TOP 01/11/25 10:00 01/11/25 11:00 240 ML Benzocaine 1 applic PRN PRN TOP 01/11/25 10:00 01/11/25 11:00 1 APPLIC Oxytocin 1,000 ml @ 125 mls/hr Q8H IV 01/11/25 10:45 01/11/25 13:01 125 MLS/HR Ibuprofen 600 mg Q6HP PRN PO 01/11/25 13:15 01/11/25 15:24 600 MG Acetaminophen 650 mg Q4HP PRN PO 01/11/25 13:15 01/11/25 19:24 650 MG Ondansetron HCl 4 mg Q4HPRN PRN PO 01/11/25 13:15 01/11/25 14:49 4 MG laboratory and microbiology Laboratory Tests 01/11/25 10:00 Test 01/11/25 10:00 Range/Units Serum Glucose 73 L 74-106 mg/dL Objective O: VSS Chest: heart and lung sounds normal. Abd soft, non-tender, fundus firm and midline at U, BS, no rebound or guarding Ext Neg Homans, Non-tender, edema Intact perineum Lochia - minimal Problems(with codes): (1) 37 weeks gestation of (2) (normal spontaneous vaginal delivery) (3) Precipitate labor (4) Intact perineum (5) Iron deficiency anemia of mother during Assessment/Plan A: 25yo ppd#1 s/p doing well. Rh status + Breast feeding Rubella status immune Pain control with PO medications Bowel regimen encouraged P: continue PP care D/c home today Rx sent to pharmacy precaution and preeclampsia warning signs reviewed Instructed to review BCM options on [email or web address] and discuss it at PP visit F/U with [facility] office in 2 weeks Plan discussed with: Patient, Other (sig other) KAREN KENNEDY Jan 12, 2025 00:47
--- NOTE | 2025-01-12 01:00 | DVHDS2 ---
Obstetrics Discharge Summary Obstetrics Discharge Summary Date of Admission: Jan 11, 2025 Date of Discharge: Jan 12, 2025 Reason For Admission: Onset of Labor (precipitous delivery) Procedures: NST Intrapartum Procedures: Spontaneous vaginal deliv Procedures: None Operative Complicat: None Discharge Diagnosis: Term -Delivered Discharge Information: Activity (Unrestricted, as tolerated), Diet (Routine), Medications (rx sent to pharmacy), Instructions (no heavy lifting and nothing in the vagina for 6 weeks), Discharge to (Home), Accompanied by (sig other), Discarge date (01/12/25) Visit Coding OBGYN Date of Service: Jan 12, 2025 Billing Provider: REINALDO HAUSER CNM NUT GRADER Common Visit Codes: 67344-FIL/OBS DISCH DAY <30MIN KAREN KENNEDY Jan 12, 2025 01:00
[2025-01-12 03:18] VITALS: BP 100/58; PULSE 66; RESP 16; TEMP 98.2; O2SAT 96
[2025-01-12 07:15] VITALS: BP 99/65; PULSE 77; RESP 18; TEMP 97.6; O2SAT 96
[2025-01-12 11:20] VITALS: BP 102/60; PULSE 75; RESP 18; TEMP 98; O2SAT 95
[2025-01-12 14:55] VITALS: BP 107/66; PULSE 70; RESP 16; TEMP 98.2; O2SAT 96
== END 2025-01-12 15:45 | disposition home or self-care (01) | DRG 560 ==
LOC: UNDOADMOB 09:38 → INTOOBSV 09:38 → OBSVTOIN 09:38 → LDRP 09:38 → OBSVTOIN 09:48 → LDRP 01-12 07:31
PROVIDERS: ADMIT Obstetrics & Gynecology; ATTEND Obstetrics & Gynecology
PROC: 10E0XZZ Delivery of Products of Conception, External Approach (ICD-10-PCS; principal; 2025-01-11)
PROC: 3E0R3BZ Introduction of Anesthetic Agent into Spinal Canal, Percutaneous Approach (ICD-10-PCS; 2025-01-11)
PROC: 00HU33Z Insertion of Infusion Device into Spinal Canal, Percutaneous Approach (ICD-10-PCS; 2025-01-11)
DX: O69.81X0 Labor and delivery complicated by cord around neck, without compression, not applicable or unspecified (principal); Z37.0 Single live birth; O99.354 Diseases of the nervous system complicating childbirth; G40.909 Epilepsy, unspecified, not intractable, without status epilepticus; O62.3 Precipitate labor; Z3A.37 37 weeks gestation of pregnancy
CPT/HCPCS: 36415; 59409; 62282; 80053; 80307; 81001; 85025; 85610; 85730; 86780; 86803; 86850; 86900; 86901; 94760; 96360; 96361; 96365; 96366; 96372; G0378; J2590; J7060; Q0162

== ENCOUNTER 2025-01-18 12:18 | Emergency (ER) | payer MEDICAID ==
[~2025-01-18] VITALS: Ht 165.1 cm; Wt 54.3 kg
[~2025-01-18 12:18] MED LIST changes: -BACIOIN49 OP; -CLIN150C PO; +DOCU-94 PO; +FERR30CA PO; -FERR325T24 PO; +IBU600T PO; -IBUP-1454 PO; -NEOM0.1O7 OP; -NITR-87 PO; -PREN-129 OR; +PREN1TAB PO; -ZOFR4T PO
[2025-01-18 12:27] VITALS: RESP 17; TEMP 98.1
--- NOTE | 2025-01-18 13:53 | DVH ---
INDICATION: HEADACHE TECHNIQUE: Multidetector row CT of the head was performed without administration of intravenous contr ast. Dose lowering techniques have been used including automated exposure control and adjustment of mA and /or kv according to patient size. COMPARISON: None FINDINGS: There is no evidence of acute intracranial hemorrhage or infarct. There is no mass effect or shifting of midline structures. Basal cisterns, sulci, and ventricles are symmetric and within normal limits. No depressed calvarial fracture. DLP is 1138.4 mGy-cm. CTDI vol is 57.8 mGy. IMPRESSION: 1. No acute intracranial abnormality.
[2025-01-18 14:20] LABS: Hematocrit 34.2 % (36.0-46.0); Hemoglobin 11.0 g/dL (12.2-16.2); Mean Corpuscular Hemoglobin 23.0 pg (28.0-32.0); Mean Corpuscular Volume 71.9 fL (80.0-100.0); Nucleated Red Blood Cells % 0.1 %
--- NOTE | 2025-01-18 14:27 | ED.PDOC ---
HPI (NEURO) HPI Comments A 25 YEAR OLD FE/MALE PRESENTS TO THE ED WITH COMPLAINT OF HEADACHE. PATIENT STATES SHE HAS BEEN HAVING A HEADACHE TO THE LEFT SIDE OF HER HEAD. PATIENT STATES SHE FEELS PAIN BEHIND HER LEFT EYE WITH ASSOCIATED PHOTOPHOBIA AND STATES SHE HAS BEEN HAVING PAIN WHEN TURNING HER HEAD [id number]. PATIENT OTHERWISE STATES SHE IS 8 DAYS . PATIENT DENIES FEVER, CHILLS, SHORTNESS OF BREATH, CHEST PAIN, ABDOMINAL PAIN, NAUSEA, VOMITING, OR OTHER COMPLAINTS. NO OTHER SYMPTOMS OR MODIFYING FACTORS AT THIS TIME. PATIENT IS ALERT, ORIENTED X 4, AND HAS STEADY GAIT. Chief Complaint: Headache Time Seen by MD: 14:24 Primary Care Provider: WALE Rabago Notes: Nurses Notes, Medications, Allergies Information Source: Patient Mode of Arrival: Ambulatory Brought in by: SELF Severity: Mild, Moderate Dizziness/Weakness Severity: Does not affect activitie Headache Severity: Mild, Moderate Timing: Days Duration: Since onset, Days Prehospital treatment: None Headache Location: Generalized Onset: At rest Circumstances: Spontaneous Modifying factors: Light Associated Signs and Symptoms: Headache Past Medical History PAST MEDICAL HISTORY: Anemia, Seizures Surgical History: Denies all surgeries RADIOLOGY TRANSPORTER History: No Pertinent RADIOLOGY TRANSPORTER History, Therapeutic Family History Family History: Reviewed,noncontributory to illness, Family hx of DM, Family hx of HTN Social History Smoker: Non-Smoker Alcohol: Denies ETOH Use Drugs: Denies Drug Use Lives In: Home Constitutional: denies: chills, diaphoresis, fatigue, fever, malaise, sweats, weakness, others EENTM: denies: blurred vision, double vision, ear bleeding, ear discharge, ear drainage, ear pain, ear ringing, eye pain, eye redness, hearing loss, mouth pain, mouth swelling, nasal discharge, nose bleeding, nose congestion, nose pain, photophobia, tearing, throat pain, throat swelling, voice changes, others Respiratory: denies: cough, hemoptysis, orthopnea, SOB at rest, shortness of breath, SOB with excertion, stridor, wheezing, others Cardiovascular: denies: chest pain, dizzy spells, diaphoresis, Dyspnea on exertion, edema, irregular heart beat, left arm pain, lightheadedness, palpitations, PND, syncope, others Gastrointestinal: denies: abdomen distended, abdominal pain, blood streaked bowels, constipated, diarrhea, dysphagia, difficulty swallowing, hematemesis, melena, nausea, poor appetite, poor fluid intake, rectal bleeding, rectal pain, vomiting, others Genitourinary: denies: abnormal vagina bleeding, burning, dyspareunia, dysuria, flank pain, frequency, hematuria, incontinence, pain, , vagina discharge, urgency, others Neurological: reports: headache; denies: dizziness, fainting, left sided numbness, left sided weakness, numbness, paresthesia, pre-existing deficit, right sided numbness, right sided weakness, seizure, speech problems, tingling, tremors, weakness, others Musculoskeletal: denies: back pain, gout, joint pain, joint swelling, muscle pain, muscle stiffness, neck pain, others Integumetry: denies: bruises, change in color, change in hair/nails, dryness, laceration, lesions, lumps, rash, wounds, others Allergic/Immunocompromised: denies: Difficulty Healing, Frequent Infections, H maite, Itching, others Hematologic/Lymphatic: denies: anemia, blood clots, easy bleeding, easy bruising, swollen glands, others Endocrine: denies: excessive hunger, excessive sweating, excessive thirst, excessive urination, flushing, intolerance to cold, intolerance to heat, unexplained weight gain, unexplained weight loss, others Psychiatric: denies: anxiety, bipolar disorder, depression, hopeless, panic disorder, schizophrenia, sleepless, suicidal, others All Other Systems: Reviewed and Negative Physical Exam General Appearance: No Apparent Distress, Normal HEENT: Normal ENT Inspection, PERRL/EOMI, Pharynx Normal, TMs Normal Neck: Full Range of Motion, Non-Tender, Normal, Normal Inspection Respiratory: Chest Non-Tender, Lungs Clear, No Accessory Muscle Use, No Respiratory Distress, Normal Breath Sounds Cardiovascular: No Edema, No JVD, No Murmur, No Gallop, Normal Peripheral Pulses, Regular Rate/Rhythm Breast Exam: Deferred Gastrointestinal: No Organomegaly, Non Tender, No Pulsatile Mass, Normal Bowel Sounds, Soft Genitalia: Deferred Pelvic: Deferred Rectal: Deferred Extremities: No calf tenderness, Normal capillary refill, Normal inspection, Normal range of motion, Non-tender, No pedal edema Musculoskeletal : Apperance: Normal Neurologic: Alert, rig superintendent II-XII nml as Tested, No Motor Deficits, Normal Affect, Normal Mood, No Sensory Deficits Cerebellar Function: Normal Reflexes: Normal Skin: Dry, Normal Color, Warm Peripheral Pulses: 2+ carotid (R), 2+ carotid (L) Lymphatic: No Adenopathy Was a procedure done? Was a procedure done?: No Differential Diagnosis (SZ) General Weakness: Anemia, Dehydration, Electrolyte imbalance Headache: Cluster, Migraine, Epidural Hemorrhage, Sinusitis, Other (ANEMIA, UTI) X-Ray, Labs, Meds, VS Vital Signs Date Time Temp Pulse Resp B/P (MAP) Pulse Ox O2 Delivery O2 Flow Rate FiO2 01/18/25 12:27 98.1 17 98.1 Lab Test 01/18/25 14:12 01/18/25 12:52 Range/Units White Blood Count 7.2 4.4-10.8 10^3/uL Red Blood Count 4.76 4.0-5.20 10^6/uL Hemoglobin 11.0 L 12.2-16.2 g/dL Hematocrit 34.2 L 36.0-46.0 % Mean Corpuscular Volume 71.9 L 80.0-100.0 fL Mean Corpuscular Hemoglobin 23.0 L 28.0-32.0 pg Mean Corpuscular Hemoglobin Concent 32.0 32.0-36.0 g/dL Red Cell Distribution Width 16.6 H 11.8-14.3 % Platelet Count 483 H 140-450 10^3/uL Mean Platelet Volume 6.5 L 6.9-10.8 fL Neutrophils (%) (Auto) 58.7 37.0-80.0 % Lymphocytes (%) (Auto) 30.7 10.0-50.0 % Monocytes (%) (Auto) 7.4 0.0-12.0 % Eosinophils (%) (Auto) 2.3 0.0-7.0 % Basophils (%) (Auto) 0.9 0.0-2.0 % Neutrophils # (Auto) 4.2 1.6-8.6 10 ^3/uL Lymphocytes # (Auto) 2.2 0.4-5.4 10 ^3/uL Monocytes # (Auto) 0.5 0-1.3 10 ^3/uL Eosinophils # (Auto) 0.2 0-0.8 10 ^3/uL Basophils # (Auto) 0.1 0-0.2 10 ^3/uL Nucleated Red Blood Cells 0.1 % Sodium Level 141 136-145 mmol/L Potassium Level 3.3 L 3.5-5.1 mmol/L Chloride Level 105 98-107 mmol/L Carbon Dioxide Level 25 20-31 mmol/L Anion Gap 11 5-15 Blood Urea Nitrogen 8 L 9-23 mg/dL Creatinine 0.66 0.550-1.02 mg/dL Glomerular Filtration Rate Calc 126 >90 mL/min BUN/Creatinine Ratio 12.1 10.0-20.0 Serum Glucose 75 74-106 mg/dL Calcium Level 9.2 8.7-10.4 mg/dL Urine Color Yellow Yellow Urine Clarity Turbid H Clear Urine pH 5.5 5.0-9.0 Urine Specific [place] 1.023 1.001-1.035 Urine Protein Trace H Negative Urine Ketones Negative Negative Urine Blood Negative Negative /uL Urine Nitrite Negative Negative Urine Bilirubin Negative Negative Urine Urobilinogen Normal Negative mg/dL Urine Leukocyte Esterase 2+ Negative /uL Urine RBC 4 0 - 4 /hpf Urine Microscopic WBC 97 H 0-5 /HPF Urine Squamous Epithelial Cells Few <5 /hpf Urine Bacteria Mod H None Seen /hpf Urine Mucus Few None Seen Urine Glucose Normal Normal mg/dL TO THE [place] [id number] Ph: [phone] DIAGNOSTIC IMAGING Diagnostic Imaging Report : [id number] Signed PATIENT: YULISA HEIN ACCT: [id number] UNIT: [id number] : 2000 LOC: ER ROOM / BED: / AGE / SEX: 25 / F ADM STATUS: REG ER SERVICE [id number] ORDERING PHYSICIAN: KEVIN NAGY PROCEDURE(s): HWOCT - HEAD WITHOUT CONTRAST REASON: HEADACHE ORDER NUMBER(s): [id number], ACCESSION NUMBER(s): [id number] INDICATION: HEADACHE TECHNIQUE: Multidetector row CT of the head was performed without administration of intravenous contrast. Dose lowering techniques have been used including automated exposure control and adjustment of mA and/or kv according to patient size. COMPARISON: None FINDINGS: There is no evidence of acute intracranial hemorrhage or infarct. There is no mass effect or shifting of midline structures. Basal cisterns, sulci, and ventricles are symmetric and within normal limits. No depressed calvarial fracture. DLP is 1138.4 mGy-cm. CTDI vol is 57.8 mGy. IMPRESSION: 1. No acute intracranial abnormality. ATED BY: SHIMON CAMPOS MD DICTATED DATE/TIME: 01/18/25 135 SIGNED BY: SHIMON CAMPOS MD SIGNED DATE/TIME: 01/18/25 1351 CC: X-Ray, Labs, Meds, VS Comment COURSE: EXTERNAL MEDICAL RECORDS REVIEWED: [NONE] INDEPENDENT HISTORIANS: [NONE] SOCIAL DETERMINANTS OF HEALTH: [NONE] LABS ORDERED: CBC, BMP, URINALYSIS REVIEWED AND INTERPRETED RESULTS: NORMAL IMAGING ORDERED: CT HEAD WITHOUT CONTRAST TREATMENTS ORDERED: NO PROCEDURES PERFORMED: NONE CRITICAL CARE TIME: NONE I HAVE DISCUSSED THE PATIENT WITH THE ATTENDING PHYSICIAN, DR. STARKS, HE AGREES WITH THE PATIENT'S PLAN OF CARE AND DISPOSITION. BASED ON HISTORY OF PRESENT ILLNESS, AND PHYSICAL EXAM, PATIENT WILL BE DISCHARGED HOME. DISCUSSED PLAN FOR DISCHARGE HOME WITH RX [[facility]]. MEDICATION WARNINGS GIVEN. SHARED DECISION MAKING: DISCUSSED WITH PATIENT THAT THEIR WORKUP WAS NORMAL. PAT IENT INSTRUCTED TO FOLLOW UP WITH PRIMARY CARE PROVIDER IN 1-2 DAYS FOR RE- EVALUATION OF SYMPTOMS. PATIENT VERBALIZES UNDERSTANDING TO RETURN TO ED FOR NEW OR WORSENING SYMPTOMS OR IF FOLLOW UP WITH PCP CANNOT BE OBTAINED. PATIENT FEELS COMFORTABLE GOING HOME AT THIS TIME. ALL QUESTIONS ADDRESSED AT TIME OF DISCHARGE. Time of 1ST Reevaluation: 15:00 Reevaluation 1ST: Improved Patient Education/Counseling: Diagnosis, Treatment, Need For Follow Up Family Education/Counseling: Diagnosis, Treatment, No Family Present Medical Screening: No EMC Exist At This Time Departure 1 Departure Time of Disposition: 15:11 Impression: Primary Impression: Migraine headache Qualified Codes: G43.909 - Migraine, unspecified, not intractable, without status migrainosus Additional Impression: UTI (urinary tract infection) Qualified Codes: N30.00 - Acute cystitis without hematuria Disposition: 01 HOME / SELF CARE / HOMELESS Condition: Stable Additional Instructions: INSTRUCTIONS: FOLLOW-UP WITH PCP IN 1 TO 2 DAYS. TAKE MEDICATIONS PRESCRIBED. RETURN TO ED FOR ANY NEW OR WORSENING SYMPTOMS. e-Prescriptions Sulfamethoxazole W/Trimethopri (Bactrim Ds Tablet) 1 Tab Tb 1 TAB PO BID for 7 Days, #14 TAB Prov: YAKOV,YINXIA PA 01/18/25 Discharged With: Self Critical Care Note Critical Care Time?: No Stability Stability form required: No Heart Score Heart Score: Heart Score Response (Comments) Value History N/A 0 EKG N/A 0 Age N/A 0 Risk Factors N/A 0 Troponin N/A 0 Total 0 I personally scribed for KEVIN NAGY ([email or web address]) on 01/18/25 at 14:27. Electronically submitted by Amaya Perrin ([email or web address]). I personally scribed for KEVIN NAGY ([email or web address]) on 01/18/25 at 14:46. Electronically submitted by Amaya Perrin ([email or web address]). KEVIN NAGY Jan 18, 2025 14:27
[2025-01-18 14:32] LABS: Chloride 105 mmol/L (98-107); Sodium 141 mmol/L (136-145)
[2025-01-18 14:33] LABS: Anion Gap 11 (5-15); Carbon Dioxide 25 mmol/L (20-31)
[2025-01-18 14:34] LABS: Calcium 9.2 mg/dL (8.7-10.4); Potassium 3.3 mmol/L (3.5-5.1)
[2025-01-18 14:36] LABS: Urine Protein, UAD TRACE (Negative)
[2025-01-18 14:38] LABS: BUN/Creatinine Ratio 12.1 (10.0-20.0); Glucose 75 mg/dL (74-106)
[2025-01-18 14:40] LABS: Blood Urea Nitrogen 8 mg/dL (9-23)
[2025-01-18] MEDS ORDERED: BACDST PO (15:12)
== END 2025-01-18 15:10 | disposition home or self-care (01) ==
LOC: ER 12:18
DX: G43.909 Migraine, unspecified, not intractable, without status migrainosus (principal); N39.0 Urinary tract infection, site not specified
CPT/HCPCS: 36415; 70450; 80048; 81001; 85025